=== PATIENT | female | born 1975 | race Caucasian/White ===

== ENCOUNTER 2018-06-07 17:37 | Emergency (ER) | payer OTHER ==
[~2018-06-07] VITALS: Ht 167.6 cm; Wt 56.7 kg
--- OUTSIDE RECORDS SUMMARY | ~2018-06-07 | XMS | Clinical Summary ---
Demographics + + + | Address | [address] | | | [place] [address] | + + + | Home Phone | | + + + | Preferred Language | Unknown | + + + | Marital Status | Single | + + + | Congregational Affiliation | Unknown | + + + | Race | Unknown | + + + | Ethnic Group | Unknown | + + + Author + + + | Author | [employer] | + + + | Organization | [facility] [employer] | + + + | Address | Unknown | + + + | Phone | Unavailable | + + + Support + + +---------+ + | Name | Relationship | Address | Phone | + + +---------+ + | Vernon Dorsey | ECON | Unknown | | + + +---------+ + | Meli Johnson | ECON | Unknown | | + + +---------+ + Care Team Providers + +------+ + | Care Heel Boom Operator Name | Role | Phone | + +------+ + PP | Unavailable | + +------+ + Allergies No Known Allergies Current Medications No known medications Active Problems + + + | Problem | Noted Date | + + + | Hypomastia | 08/01/2015 | + + + Social History + +-------+ +--------+------+ | Tobacco Use | Types | Packs/Day | Years | Date | | | | | Used | | + +-------+ +--------+------+ | Never Assessed | | | | | + +-------+ +--------+------+ + + + | Sex Assigned at | Date Recorded | | | | + + + | Not on file | | + + + Last Filed Vital Signs + + + + | Vital Sign | Reading | Time Taken | + + + + | Blood Pressure | - | - | + + + + | Pulse | - | - | + + + + | Temperature | - | - | + + + + | Respiratory Rate | - | - | + + + + | Oxygen Saturation | - | - | + + + + | Inhaled Oxygen | - | - | | Concentration | | | + + + + | Weight | 59 kg (130 lb) | 08/01/2015 1:00 PM PST | + + + + | Height | 167.6 cm (5' 6") | 08/01/2015 1:00 PM PST | + + + + | Body Mass Index | 20.98 | 08/01/2015 1:00 PM PST | + + + + Plan of Treatment + + + + + | Health Maintenance | Due Date | Last Done | Comments | + + + + + | Vaccine: | | | | | Dtap/Tdap/Td (1 - | 3 | | | | Tdap) | | | | + + + + + | Cervical Cancer | | | | | Screening (Pap) | 4 | | | + + + + + | Vaccine: Influenza | | | | | (#1) | 8 | | | + + + + + Results Not on filefrom Last 3 Months
--- OUTSIDE RECORDS SUMMARY | ~2018-06-07 | XMS | Clinical Summary ---
Demographics + + + | Address | [address] | | | [place] [address] | + + + | Home Phone | | + + + | Preferred Language | Unknown | + + + | Marital Status | Single | + + + | Taoism Affiliation | Unknown | + + + | Race | Unknown | + + + | Ethnic Group | Unknown | + + + Author + + + | Author | [facility] | + + + | Organization | [facility] [employer] | + + + | Address [...] Team Providers + +------+ + | Care Wholesale Representative Name | Role | Phone | + [...]
[~2018-06-07 17:37] MED LIST: MOTRIN IB200 MG PO; NORCO 5-325 TA1 EACH PO; VALTREX500 MG PO
[2018-06-07] MEDS ORDERED: WELLBUTRIN XL300 MG PO (18:00)
--- NOTE | 2018-06-08 19:53 | EKG ---
[facility] [address] [place] [address] Signed Normal sinus rhythm Normal ECG No previous ECGs available Confirmed by JOVI TAYLOR MD ([id number]) on 06/08/2018 7:53:40 PM Electronically Signed By: JOVI TAYLOR MD 06/08/181952 PATIENT NAME: RACHAEL HINOJOSA Electrocardiogram DATE OF : 73 PHYSICIAN: JOVI TAYLOR MD REPORT #: [id number] REPORT IS CONFIDENTIAL AND NOT TO BE RELEASED WITHOUT AUTHORIZATION
== END 2018-06-07 21:45 | disposition home or self-care (01) ==
LOC: ED 17:37
DX: R07.89 Other chest pain (principal); F17.200 Nicotine dependence, unspecified, uncomplicated; Z79.899 Other long term (current) drug therapy
CPT/HCPCS: 71045; 80053; 84484; 85025; 93005; 93010; 99285

== ENCOUNTER 2021-09-25 12:48 | Day surgery (SDC) | payer OTHER ==
[~2021-09-25] VITALS: Ht 167.6 cm; Wt 56.8 kg
[~2021-09-25 12:48] MED LIST changes: +WELLBUTRIN XL300 MG PO
--- NOTE | 2021-09-25 15:24 | NUR ---
09/25/21 1523 Suad Ying 1517 PATIENT ARRIVES TO PACU AWAKE BUT DROWSY. RESP EVEN AND UNLABORED, NC AT 2 LITERS, SATS 100%. PATIENT DENIES PAIN OR NAUSEA. REPOSITIONS SELF TO BACK. HOB ELEVATED.
--- NOTE | 2021-09-26 17:24 | OR ---
[facility] [address] [place], [place] [address] Signed DATE OF OPERATION: 09/25/2021 SURGEON: Collin Barrett MD PREOPERATIVE DIAGNOSES: 1. Persistent episodic nausea. Negative history of eating disorder; status post cholecystectomy in 2004. 2. Abdominal pain and diarrhea. POSTOPERATIVE DIAGNOSES: 1. Antral gastritis without ulceration. CLOtest negative. 2. Normal-appearing colon and ilium. PROCEDURES: 1. Esophagogastroduodenoscopy with biopsy. 2. Total colonoscopy to cecum with intubation of the ileum and biopsy of the ileum, cecum, and rectum. ANESTHESIA: Intravenous sedation; fentanyl 200 mcg and Versed 8 mg total. INDICATION: This 46-year-old white woman is a patient of [facility]. She is referred for evaluation with complaints of persistent longstanding nausea (many years standing). She has history of cholecystectomy for gallstones elsewhere. Additionally, she has complaints of persistent diarrhea. It is uncertain if she had the diarrhea prior to cholecystectomy. She has no family history of stomach or colon cancer. She is admitted at this time to undergo upper endoscopy and colonoscopy to better characterize the problems. FINDINGS: Upper endoscopy showed antral gastritis but no other findings of concern. CLOtest was negative 30 minutes post procedure. There was no actual ulcer of the antrum, however. There was a small hiatal hernia but no evidence of esophagitis. On colonoscopy, the prep was excellent. Complete colonoscopy was undertaken to the cecum and intubation of the ileum was accomplished as well. Biopsies were taken of the ileum, cecum, and rectum, though there was no obvious pathologic abnormality. DESCRIPTION OF PROCEDURE: Electronically Signed By: COLLIN BARRETT MD 09/25/21 2397 Electronically Signed By: COLLIN BARRETT MD 09/26/21 6575 PATIENT NAME: RACHAEL HINOJOSA OPERATIVE REPORT DATE OF : 73 REPORT #: [id number] PHYSICIAN: COLLIN BARRETT MD PCP: EMY LEAL PA-C REPORT IS CONFIDENTIAL AND NOT TO BE RELEASED WITHOUT AUTHORIZATION [facility] [address] [place], [place] [address] Signed The patient was brought to the endoscopy suite and given topical hypopharyngeal lidocaine anesthesia. She was given intravenous sedation to the point of slurred speech and nystagmus with full cardiopulmonary monitoring. A bite block was placed. An Olympus video upper endoscope was passed in the hypopharynx. The vocal cords were normal. Scope was advanced to the esophagus throughout its length, it was normal. Scope was passed into the stomach. Rugal folds appeared normal. There was no sign of bilious fluid. The scope was passed to the antrum, which showed pre-pyloric antral gastritis but no ulceration proper. Pylorus was normal and nondeformed. The scope was passed into the duodenum. The duodenum was normal. The biopsies were obtained nevertheless to assess for celiac disease. The scope was withdrawn and biopsies taken of the antrum for both ASHLEE and pathologic testing. Withdrawal of scope and retroflex evaluation showed a hiatal hernia which was small. The scope was straightened and withdrawn to the distal esophagus. Mucosa was normal. There was no Cagle's epithelium, stricture, neoplasm or inflammation. Biopsies were taken from the distal esophagus and withdrawn to the mid esophagus as she did have some complaints of dysphagia from time to time. Biopsies were obtained and appeared normal grossly. The scope was removed. Plans were then made for colonoscopy. Additional sedation was given. Digital rectal exam performed. An Olympus video colonoscope was passed in the rectum and manipulated throughout the colon ultimately intubating the cecum without question. The ileocecal valve and appendiceal orifice were normal. With various manipulations, the scope was passed into the ilium. The ileal mucosa was normal with well visualized villi. Biopsies were taken nevertheless. The scope was withdrawn and biopsies then taken of the cecum. Careful withdrawal of scope showed no sign of abnormality elsewhere, specifically no polyps, diverticular formation, colitis, or cancer. Retroflexed view was normal. Biopsies were taken of the rectum to rule out occult colitis. The scope was straightened, withdrawn and removed. The patient was taken to the recovery room in good condition. CONCLUDING DIAGNOSES: 1. Antral gastritis, hiatal hernia without esophagitis. No other findings of concern. 2. Colon normal completely including ileum. PLAN: 1. We will treat with Prilosec 20 mg daily for antral gastritis. We would anticipate this to be a limited prescription likely for two months or so. 2. Initiate Questran 4 g p.o. q.i.d. tapering to the lowest effective dose. If biopsies are negative for occult colitis and Questran is ineffective, then consideration would be made that this represents an irritable bowel syndrome problem (most likely) for which a low FODMAP diet would be indicated. She will return to see us in the office in 4 to 6 weeks. Electronically Signed By: COLLIN BARRETT MD 09/25/21 2897 Electronically Signed By: COLLIN BARRETT MD 09/26/21 1725 PATIENT NAME: RACHAEL HINOJOSA OPERATIVE REPORT DATE OF : 73 REPORT #: [id number] PHYSICIAN: COLLIN BARRETT MD PCP: EMY LEAL PA-C REPORT IS CONFIDENTIAL AND NOT TO BE RELEASED WITHOUT AUTHORIZATION [facility] [address] [place], [place] [address] Signed MD HANSEL Yang/MAGALI /[id number] cc: [facility] Copies: ~ Electronically Signed By: COLLIN BARRETT MD 09/25/21 1730 Electronically Signed By: COLLIN BARRETT MD 09/26/21 1724 PATIENT NAME: RACHAEL HINOJOSA OPERATIVE REPORT DATE OF : 73 REPORT #: [id number] PHYSICIAN: COLLIN BARRETT MD PCP: EMY LEAL PA-C REPORT IS CONFIDENTIAL AND NOT TO BE RELEASED WITHOUT AUTHORIZATION
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
== END 2021-09-25 16:00 | disposition home or self-care (01) ==
LOC: OPS 12:48 → DS 12:48 → OPS 14:00 → DS 14:00 → OPS 16:00
PROVIDERS: ATTEND Surgery
PROC: 0DB28ZX Excision of Middle Esophagus, Via Natural or Artificial Opening Endoscopic, Diagnostic (ICD-10-PCS; 2021-09-25)
PROC: 0DB38ZX Excision of Lower Esophagus, Via Natural or Artificial Opening Endoscopic, Diagnostic (ICD-10-PCS; 2021-09-25)
PROC: 0DBH8ZX Excision of Cecum, Via Natural or Artificial Opening Endoscopic, Diagnostic (ICD-10-PCS; 2021-09-25)
PROC: 0DBP8ZX Excision of Rectum, Via Natural or Artificial Opening Endoscopic, Diagnostic (ICD-10-PCS; 2021-09-25)
PROC: 0DBB8ZX Excision of Ileum, Via Natural or Artificial Opening Endoscopic, Diagnostic (ICD-10-PCS; 2021-09-25)
PROC: 0DB98ZX Excision of Duodenum, Via Natural or Artificial Opening Endoscopic, Diagnostic (ICD-10-PCS; principal; 2021-09-25 14:00)
PROC: 0DB68ZX Excision of Stomach, Via Natural or Artificial Opening Endoscopic, Diagnostic (ICD-10-PCS; 2021-09-25 14:00)
DX: K29.70 Gastritis, unspecified, without bleeding (principal); R19.7 Diarrhea, unspecified; R13.19 Other dysphagia; Z90.49 Acquired absence of other specified parts of digestive tract
CPT/HCPCS: 84703; 99153; G0500; J2250; J3010

== ENCOUNTER 2022-06-26 05:44 | Day surgery (SDC) | payer OTHER ==
[~2022-06-26] VITALS: Ht 167.6 cm; Wt 55.9 kg
[~2022-06-26 05:44] MED LIST changes: +IMITREX100 MG PO
--- NOTE | 2022-06-26 11:30 | NUR ---
06/26/22 1130 Shyla Tarango 1031 PT ARRIVED IN PACU SLEEPY. 1043 C/O ABD PAIN 5/10. FENTANYL 25MCG GIVEN IVP. 1050 ANESTHESIA AT BEDSIDE. 1058 PAIN DOWN TO 3/10. FENTANYL 25MCG GIVEN IVP. 1112 TO DS. PAIN DOWN TO 2/10. REPORT GIVEN TO RN.
--- NOTE | 2022-06-26 11:32 | NUR ---
LE 1112 PATIENT BACK FROM PACU. REPORT RECIEVED FROM ROSARIO MADSEN. BREATHING EQUAL AND UNLABORED. OXYGEN SATURATIONS ABOVE 95% ON ROOM AIR. PATIENT IS DROWSY. COMPLAINS OF 4/10 SURGICAL PAIN BUT DENIES NEEDING ANYTHING AT THIS TIME. SURGICAL SITE CLEAN, DRY AND INTACT. DIMA PAD CLEAN, DRY AND INTACT. IVF INFUSING. PATIENT IS DRINKING WATER. PATIENT DENIES BEING NAUSEATED. SCD'S ON. SPOUSE AT BEDSIDE. CALL LIGHT WITHIN REACH NO FUTHER NEEDS. NO QUESTIONS AT THIS TIME. LE 1125 PATIENT ZAMORA CATH REMOVED. 125 MLS OF CLEAR AND YELLOW URINE.
--- NOTE | 2022-06-26 12:00 | NUR ---
LE 1151 PATIENT COMPLAINING OF PAIN. PRN PAIN MEDICINE GIVEN. PATIENT ABLE TO EAT PUDDING AND DRINK WATER. PATIENT DENIES BEING NAUSEATED. CALL LIGHT WITHIN REACH NO FUTHER NEEDS. NO QUESTIONS AT THIS TIME.
--- NOTE | 2022-06-26 12:39 | NUR ---
LE 1220 PATIENT ALERT AND ORIENTED. BREATHING EQUAL AND UNLABORED. PATIENT PAIN IMPROVED /. PATIENT OXYGEN SATURATIONS ABOVE 95% ON ROOM AIR. PATIENT SURGICAL SITE FEELS TIGHT AND HEMATOMAS FORMING AT LAP SITES. DR. IBARRA NOTIFIED. PATIENT RESTING IN BED WITH SPOUSE AT BEDSIDE. THIS RN AT BEDSIDE. LE 1230 DR. IBARRA IN ROOM WITH PATIENT.
--- NOTE | 2022-06-26 13:06 | NUR ---
LE 4829 DR. IBARRA ASSESSED PATIENT. PATIENT BACK TO OR FOR HEMATOMA EVACUATION. MABLE BOWSER AT BEDSIDE.
--- NOTE | 2022-06-26 14:44 | NUR ---
06/26/22 1444 Shyla Tarango 1423 PT ARRIVED IN PACU SLEEPY WITH NO C/O'S. 1430 WANTING TO SIT UP IN BED. REPOSITIONED SELF. ICE TO ABD. 1445 TAKING SIPS OF WATER.
--- NOTE | 2022-06-26 15:14 | NUR ---
LE 1455 PATIENT BACK TO DAY SURGERY. PATIENT IS ALERT AND ORIENTED. BREATHING EQUAL AND UNLABORED. OXYGEN SATURATIONS ABOVE 95% ON ROOM AIR. PATIENT DENIES ANY PAIN OR BEING NAUSEATED. IVF INFUSING. PATIENT DRINKING WATER AND TALKING TO SPOUSE. SURGICAL SITES LOOK CLEAN DRY AND INTACT. PATIENT REQUESTING TO VOID. PATIENT VODIED 100 MLS OF CLEAR YELLOW URINE. NO QUESTIONS AT THIS TIME. CALL LIGHT WITHIN REACH NO FUTHER NEEDS.
--- NOTE | 2022-06-26 16:29 | NUR ---
LE 1555 DR. IBARRA AT BEDSIDE. LE 1615 PATIENT HAS MET DISCHARGE CRITERIA. PATIENT WAS ABLE TO DRESS SELF AND TOLERATED IT WELL. DISCHARGE INSTRUCTION GIVEN AND UNDERSTOOD. NO QUESTIONS AT THIS TIME. PATIENT WAS WHEELED OUT OF FACILITY TO PRIVATE AUTO WITH SPOUSE.
--- NOTE | 2022-06-30 08:05 | OR ---
[facility] [address] [place], [place] [address] Signed DATE OF OPERATION: 06/26/2022 SURGEON: Jonathan Wallace DO PREOPERATIVE DIAGNOSES: Status post TLH-BSO, cystoscopy, postoperative hematoma. POSTOPERATIVE DIAGNOSES: Status post TLH-BSO, cystoscopy, postoperative hematoma. PROCEDURE PERFORMED: Evacuation of postoperative hematoma. ANESTHESIA: General. ESTIMATED BLOOD LOSS: 20 mL. TUMBLER TENDER: Alejandra Gilmore DO. FINDINGS: Approximately 8 cm extra fascial postoperative hematoma at the umbilicus and a smaller 3 cm extra fascial postoperative hematoma of the right lower quadrant. No obvious bleeders identified. Hemostasis at the end of procedure. COMPLICATIONS: None. INDICATIONS: Ms. Hinojosa is a very pleasant 47-year-old female who underwent total laparoscopic hysterectomy, bilateral salpingectomy, and cystoscopy earlier in the day without apparent complication. The patient was taken the recovery area where she complained of some infraumbilical incision, swelling and tenderness. On exam, an 8-10 cm infraumbilical extrafascial hematoma was noted with a smaller 3 cm right lower quadrant incisional hematoma also noted. The patient did receive heparin preoperatively per Caprini score. The patient was consented for evacuation of hematoma. Risks, benefits, and alternatives were discussed in detail with the patient. The patient understands and wished to proceed with the procedure. Electronically Signed By: JONATHAN WALLACE DO 06/30/22 0805 PATIENT NAME: RACHAEL HINOJOSA OPERATIVE REPORT DATE OF : 73 REPORT #: [id number] PHYSICIAN: JONATHAN WALLACE DO PCP: EMY LEAL PA-C REPORT IS CONFIDENTIAL AND NOT TO BE RELEASED WITHOUT AUTHORIZATION [facility] [address] [place], [place] [address] Signed PROCEDURE IN DETAIL: The patient was taken to the operating room where a time-out was performed to confirm correct patient, correct procedure. General anesthetic was adequately established and the stomach was suction with OG tube. The patient was prepped and draped in the supine position. The patient was re-dosed with Ancef 2 g preoperatively. The infraumbilical in the right lower quadrant incisions was opened using a surgical scalpel and gross blood clots consistent with extra fascial hematoma were evacuated. Approximately 30 mL of hematoma was evacuated from both incisions in total. The incisions were copiously irrigated and examined. Judicious monopolar electrocautery was used to fulgurate any oozing areas. No obvious cause of hematoma was identified in the either incision. The patient was given 1 g of tranexamic acid intraoperatively. Thelma was placed into the wounds once hemostasis was appreciated. No bleeding was noted with pressure placed on the wound. The wounds were then closed in two layers. The deep layer being a 3-0 Vicryl. The skin on the right lower quadrant was closed with 4-0 Vicryl. Oozing was noted at the skin edge with closure of 4-0 Vicryl at the umbilicus and decision was made to close with marybeth. Skin was closed with marybeth with excellent hemostasis appreciated. The operative sites remained soft with no obvious bleeding. The patient was then taken to PACU in good and stable condition. Sponge, needle, and instrument count were correct x2 at the end of procedure. Dr. Gilmore was present and participated in all portions of the procedure. Jonathan Wallace DO JDW/MODL /[id number] Copies: ~ Electronically Signed By: JONATHAN WALLACE DO 06/30/22 0805 PATIENT NAME: RACHAEL HINOJOSA OPERATIVE REPORT DATE OF : 73 REPORT #: [id number] PHYSICIAN: JONATHAN WALLACE DO PCP: EMY LEAL PA-C REPORT IS CONFIDENTIAL AND NOT TO BE RELEASED WITHOUT AUTHORIZATION
== END 2022-06-26 16:15 | disposition home or self-care (01) ==
LOC: OPS 05:44 → DS 05:44 → OPS 07:30 → DS 07:30 → OPS 16:15
PROVIDERS: ATTEND Obstetrics & Gynecology
PROC: 0JC80ZZ Extirpation of Matter from Abdomen Subcutaneous Tissue and Fascia, Open Approach (ICD-10-PCS; principal; 2022-06-26 07:30)
DX: N99.840 Postprocedural hematoma of a genitourinary system organ or structure following a genitourinary system procedure (principal); Z90.710 Acquired absence of both cervix and uterus
CPT/HCPCS: J0131; J0690; J1100; J1644; J1885; J2001; J2250; J2405; J2704; J2710; J3010; J7121

== ENCOUNTER 2022-11-26 11:55 | Emergency (ER) | payer OTHER ==
[~2022-11-26] VITALS: Ht 167.6 cm; Wt 54.4 kg
--- OUTSIDE RECORDS SUMMARY | 2022-11-26 11:58 | XMS ---
PreManage Notification: RACHAEL HINOJOSA Security Filling Machine Tender Events No recent Security Events currently on file CRITERIA MET - PDMP CARE PROVIDERS EMY LEAL Physician Brand Designer Current PHONE: Unknown SELINA [facility] PHONE: [phone] Shane has no Care Guidelines for this patient. Cristina VISIT COUNT (12 MO.) 1 LAMIN [place] TOTAL 1 NOTE: Visits indicate total known visits. ED/UCC VISIT TRACKING (12 MO.) 11/26/2022 11:[address] [facility] [place] TYPE: Emergency COMPLAINT: - CHEST PAIN, HIGH HEART RATE INPATIENT VISIT TRACKING (12 MO.) No inpatient visits to display in this time frame [email or web address]
[2022-11-26] MEDS ORDERED: LAMICTAL25 MG PO (12:04)
--- NOTE | 2022-11-26 14:58 | EKG ---
[facility] [address] [facility] [place] [address] Signed Poor data quality, interpretation may be adversely affected Normal sinus rhythm Normal ECG No previous ECGs available Confirmed by BECK MCLAIN MD ([id number]) on 11/26/2022 2:58:15 PM Electronically Signed By: BECK MCLAIN MD 11/26/22 1458 PATIENT NAME: RACHAEL HINOJOSA Electrocardiogram DATE OF : 73 PHYSICIAN: BECK MCLAIN MD REPORT #: [id number] REPORT IS CONFIDENTIAL AND NOT TO BE RELEASED WITHOUT AUTHORIZATION
== END 2022-11-26 14:03 | disposition home or self-care (01) ==
LOC: ED 11:55
DX: F41.9 Anxiety disorder, unspecified (principal); F17.200 Nicotine dependence, unspecified, uncomplicated; Z79.899 Other long term (current) drug therapy
CPT/HCPCS: 36415; 71045; 80053; 83735; 84484; 85025; 93005; 93010; 99285-25; A9270

== ENCOUNTER 2023-08-09 19:54 | Emergency (ER) | payer OTHER ==
[~2023-08-09] VITALS: Ht 167.6 cm; Wt 63.8 kg
[~2023-08-09 19:54] MED LIST changes: +LAMICTAL25 MG PO
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
[2023-08-09 21:11] LABS: AMPHETAMINES, URINE NEGATIVE (NEGATIVE); BARBITURATES, URINE NEGATIVE (NEGATIVE); BENZODIAZEPINE, URINE NEGATIVE (NEGATIVE); BUPRENORPHINE, URINE NEGATIVE (NEGATIVE); CANNABINOID, URINE POSITIVE (NEGATIVE); COCAINE, URINE NEGATIVE (NEGATIVE); ECSTASY, URINE NEGATIVE (NEGATIVE); FENTANYL, URINE NEGATIVE (NEGATIVE); METHADONE, URINE NEGATIVE (NEGATIVE); OPIATES, URINE NEGATIVE (NEGATIVE); OXYCODONE, URINE NEGATIVE (NEGATIVE); PHENCYCLIDINE, URINE NEGATIVE (NEGATIVE)
[2023-08-09 21:44] VITALS: BP 127/78
== END 2023-08-09 21:45 | disposition home or self-care (01) ==
LOC: ED 19:54
PROVIDERS: Internal Medicine
DX: F41.1 Generalized anxiety disorder (principal); F17.200 Nicotine dependence, unspecified, uncomplicated; Z79.899 Other long term (current) drug therapy
CPT/HCPCS: 80307; 99283

== ENCOUNTER 2023-10-17 15:36 | Emergency (ER) | payer OTHER ==
[~2023-10-17] VITALS: Ht 167.6 cm; Wt 50.9 kg
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
[2023-10-17] MEDS ORDERED: OMEPRAZOLE20 MG PO (15:59)
[2023-10-17] MEDS ORDERED: ATORVASTATIN CA20 MG PO (15:59)
[2023-10-17] MEDS ORDERED: PROGESTERONE200 MG PO (15:59)
[2023-10-17] MEDS ORDERED: TRAZODONE HCL50 MG NG (15:59)
[2023-10-17] MEDS ORDERED: ALPRAZOLAM0.25 MG PO (16:00)
[2023-10-17 16:16] LABS: BASOPHILS 0.5 % (0-2); EOSINOPHILS 1.1 % (0-6); HEMATOCRIT 39.6 % (35.0-50.0); HEMOGLOBIN 13.4 g/dL (12.0-18.0); LYMPHOCYTES 25.2 % (24-44); MCHC 33.8 g/dl (30-36); MCV 85.9 fl (81-99); MONOCYTES 7.2 % (0-12); PLATELET COUNT 306 K/uL (140-440); RBC 4.62 M/ul (4.3-5.7); RDW 14.3 (10.5-15.0)
[2023-10-17 16:32] LABS: ALBUMIN/GLOBULIN RATIO 1.11 (1.1-2.4); ANION GAP 15.3 (7-21); BILIRUBIN, TOTAL 0.4 ng/dL (0.2-1.0); BUN/CREATININE RATIO 11.95 (6.0-28.6); CALCIUM 9.5 mg/dL (8.5-10.1); CREATININE, SERUM 0.92 mg/dL (0.55-1.02); POTASSIUM 3.3 mmol/L (3.5-5.1); PROTEIN, TOTAL 7.6 g/dL (6.4-8.2)
[2023-10-17 18:00] VITALS: BP 149/98
--- NOTE | 2023-10-17 22:53 | EKG ---
[facility] [address] [place] [address] Signed Normal sinus rhythm Normal ECG When compared with ECG of 26-NOV-2022 12:01, No significant change was found Confirmed by Kevon Clements MD () on 10/17/2023 10:53:44 PM Electronically Signed By: KEVON CLEMENTS MD 10/17/23 2253 PATIENT NAME: RACHAEL HINOJOSA Electrocardiogram DATE OF : 73 PHYSICIAN: KEVON CLEMENTS MD REPORT #: [id number] REPORT IS CONFIDENTIAL AND NOT TO BE RELEASED WITHOUT AUTHORIZATION
== END 2023-10-17 18:00 | disposition home or self-care (01) ==
LOC: ED 15:36
PROVIDERS: Emergency Medicine
DX: R07.89 Other chest pain (principal); K21.9 Gastro-esophageal reflux disease without esophagitis; E78.00 Pure hypercholesterolemia, unspecified; F17.200 Nicotine dependence, unspecified, uncomplicated; Z79.899 Other long term (current) drug therapy
CPT/HCPCS: 36415; 71045; 80053; 83735; 84484; 85025; 93005; 93010; 99285-25